=== PATIENT | female | born 1940 | race Caucasian/White ===

== ENCOUNTER → 2021-11-05 | Outpatient (CLI) | payer MEDICARE, OTHER ==
[2021-11-05 14:58] LABS: PROTHROMBIN TIME 18.2 SECONDS (9.0-12.0)
== END ==
LOC: LAB 14:33
PROVIDERS: Family Medicine
DX: Z79.01 Long term (current) use of anticoagulants (principal)

== ENCOUNTER → 2021-11-08 | Outpatient (CLI) | payer MEDICARE, OTHER ==
[2021-11-08 09:05] LABS: PROTHROMBIN TIME 19.9 SECONDS (9.0-12.0)
== END ==
LOC: LAB 08:32
PROVIDERS: Family Medicine
DX: Z12.31 Encounter for screening mammogram for malignant neoplasm of breast (principal); E78.5 Hyperlipidemia, unspecified; E05.90 Thyrotoxicosis, unspecified without thyrotoxic crisis or storm; I48.91 Unspecified atrial fibrillation; E66.9 Obesity, unspecified; Z79.01 Long term (current) use of anticoagulants

== ENCOUNTER → 2021-11-15 | Outpatient (CLI) | payer MEDICARE, OTHER ==
[2021-11-15 09:06] LABS: PROTHROMBIN TIME 22.2 SECONDS (9.0-12.0)
== END ==
LOC: LAB 08:17
PROVIDERS: Family Medicine
DX: Z12.31 Encounter for screening mammogram for malignant neoplasm of breast (principal); E78.5 Hyperlipidemia, unspecified; E05.90 Thyrotoxicosis, unspecified without thyrotoxic crisis or storm; E66.9 Obesity, unspecified; I48.91 Unspecified atrial fibrillation; Z79.01 Long term (current) use of anticoagulants

== ENCOUNTER → 2021-11-29 | Outpatient (CLI) | payer MEDICARE, OTHER ==
[2021-11-29 09:05] LABS: PROTHROMBIN TIME 33.9 SECONDS (9.0-12.0)
== END ==
LOC: LAB 08:19
PROVIDERS: Family Medicine
DX: Z12.31 Encounter for screening mammogram for malignant neoplasm of breast (principal); E78.5 Hyperlipidemia, unspecified; E05.90 Thyrotoxicosis, unspecified without thyrotoxic crisis or storm; E66.9 Obesity, unspecified; I48.91 Unspecified atrial fibrillation; Z79.01 Long term (current) use of anticoagulants

== ENCOUNTER → 2021-12-03 | Outpatient (CLI) | payer MEDICARE, OTHER ==
[2021-12-03 08:52] LABS: PROTHROMBIN TIME 35.7 SECONDS (9.0-12.0)
== END ==
LOC: LAB 08:06
PROVIDERS: Family Medicine
DX: Z12.31 Encounter for screening mammogram for malignant neoplasm of breast (principal); E78.5 Hyperlipidemia, unspecified; E05.90 Thyrotoxicosis, unspecified without thyrotoxic crisis or storm; E66.9 Obesity, unspecified; I48.91 Unspecified atrial fibrillation; Z79.01 Long term (current) use of anticoagulants

== ENCOUNTER → 2021-12-05 | Outpatient (CLI) | payer MEDICARE, OTHER ==
[2021-12-05 09:35] LABS: PROTHROMBIN TIME 27.5 SECONDS (9.0-12.0)
== END ==
LOC: LAB 08:35
PROVIDERS: Family Medicine
DX: Z12.39 Encounter for other screening for malignant neoplasm of breast (principal); E78.5 Hyperlipidemia, unspecified; E05.90 Thyrotoxicosis, unspecified without thyrotoxic crisis or storm; E66.9 Obesity, unspecified; I48.91 Unspecified atrial fibrillation; Z79.01 Long term (current) use of anticoagulants

== ENCOUNTER → 2021-12-13 | Outpatient (CLI) | payer MEDICARE, OTHER ==
[2021-12-13 08:59] LABS: PROTHROMBIN TIME 20.1 SECONDS (9.0-12.0)
== END ==
LOC: LAB 07:54
PROVIDERS: Family Medicine
DX: Z12.31 Encounter for screening mammogram for malignant neoplasm of breast (principal); E78.5 Hyperlipidemia, unspecified; E05.90 Thyrotoxicosis, unspecified without thyrotoxic crisis or storm; E66.9 Obesity, unspecified; I48.91 Unspecified atrial fibrillation; Z79.01 Long term (current) use of anticoagulants

== ENCOUNTER → 2021-12-20 | Outpatient (CLI) | payer MEDICARE, OTHER ==
[2021-12-20 10:28] LABS: PROTHROMBIN TIME 26.6 SECONDS (9.0-12.0)
== END ==
LOC: LAB 08:06
PROVIDERS: Family Medicine
DX: Z12.39 Encounter for other screening for malignant neoplasm of breast (principal); E78.5 Hyperlipidemia, unspecified; Z79.01 Long term (current) use of anticoagulants; E05.90 Thyrotoxicosis, unspecified without thyrotoxic crisis or storm; E66.9 Obesity, unspecified; I48.91 Unspecified atrial fibrillation

== ENCOUNTER → 2022-01-06 | Outpatient (CLI) | payer MEDICARE, OTHER ==
[2022-01-06 10:24] LABS: PROTHROMBIN TIME 37.2 SECONDS (9.0-12.0)
== END ==
LOC: LAB 09:05
PROVIDERS: Family Medicine
DX: Z12.39 Encounter for other screening for malignant neoplasm of breast (principal); I48.91 Unspecified atrial fibrillation; E05.90 Thyrotoxicosis, unspecified without thyrotoxic crisis or storm; E78.5 Hyperlipidemia, unspecified; E66.9 Obesity, unspecified

== ENCOUNTER → 2022-01-08 | Outpatient (CLI) | payer MEDICARE, OTHER ==
[2022-01-08 09:32] LABS: PROTHROMBIN TIME 27.3 SECONDS (9.0-12.0)
== END ==
LOC: LAB 08:12
PROVIDERS: Family Medicine
DX: Z12.31 Encounter for screening mammogram for malignant neoplasm of breast (principal); I48.91 Unspecified atrial fibrillation; E05.90 Thyrotoxicosis, unspecified without thyrotoxic crisis or storm; E78.5 Hyperlipidemia, unspecified; E66.9 Obesity, unspecified; Z79.01 Long term (current) use of anticoagulants

== ENCOUNTER → 2022-01-13 | Outpatient (CLI) | payer MEDICARE, OTHER ==
[2022-01-13 08:56] LABS: PROTHROMBIN TIME 28.2 SECONDS (9.0-12.0)
== END ==
LOC: LAB 08:26
PROVIDERS: Family Medicine
DX: Z12.31 Encounter for screening mammogram for malignant neoplasm of breast (principal); I48.91 Unspecified atrial fibrillation; E78.5 Hyperlipidemia, unspecified; E05.90 Thyrotoxicosis, unspecified without thyrotoxic crisis or storm; E66.9 Obesity, unspecified; Z79.01 Long term (current) use of anticoagulants

== ENCOUNTER → 2022-01-27 | Outpatient (CLI) | payer MEDICARE, OTHER ==
[2022-01-27 12:10] LABS: PROTHROMBIN TIME 29.7 SECONDS (9.0-12.0)
== END ==
LOC: LAB 10:05
PROVIDERS: Family Medicine
DX: Z12.39 Encounter for other screening for malignant neoplasm of breast (principal); I48.91 Unspecified atrial fibrillation; E05.90 Thyrotoxicosis, unspecified without thyrotoxic crisis or storm; E78.5 Hyperlipidemia, unspecified; Z79.01 Long term (current) use of anticoagulants; E66.9 Obesity, unspecified

== ENCOUNTER → 2022-02-11 | Outpatient (CLI) | payer MEDICARE, OTHER ==
[2022-02-11 10:54] LABS: PROTHROMBIN TIME 43.9 SECONDS (9.0-12.0)
== END ==
LOC: LAB 10:18
PROVIDERS: Family Medicine
DX: I48.91 Unspecified atrial fibrillation (principal); Z12.39 Encounter for other screening for malignant neoplasm of breast; E05.90 Thyrotoxicosis, unspecified without thyrotoxic crisis or storm; Z79.01 Long term (current) use of anticoagulants; E66.9 Obesity, unspecified

== ENCOUNTER → 2022-02-14 | Outpatient (CLI) | payer MEDICARE, OTHER ==
[2022-02-14 10:09] LABS: PROTHROMBIN TIME 20.6 SECONDS (9.0-12.0)
== END ==
LOC: LAB 09:26
PROVIDERS: Family Medicine
DX: Z12.39 Encounter for other screening for malignant neoplasm of breast (principal); I48.91 Unspecified atrial fibrillation; E05.90 Thyrotoxicosis, unspecified without thyrotoxic crisis or storm; E66.9 Obesity, unspecified; E78.5 Hyperlipidemia, unspecified; Z79.01 Long term (current) use of anticoagulants

== ENCOUNTER → 2022-02-28 | Outpatient (CLI) | payer MEDICARE, OTHER ==
[2022-02-28 09:11] LABS: PROTHROMBIN TIME 21.1 SECONDS (9.0-12.0)
== END ==
LOC: LAB 08:32
PROVIDERS: Family Medicine
DX: Z12.31 Encounter for screening mammogram for malignant neoplasm of breast (principal); E78.5 Hyperlipidemia, unspecified; E05.90 Thyrotoxicosis, unspecified without thyrotoxic crisis or storm; I48.91 Unspecified atrial fibrillation; E66.9 Obesity, unspecified; Z79.01 Long term (current) use of anticoagulants

== ENCOUNTER → 2022-04-02 | Outpatient (CLI) | payer MEDICARE, OTHER ==
[2022-04-02 10:50] LABS: PROTHROMBIN TIME 21.1 SECONDS (9.0-12.0)
== END ==
LOC: LAB 10:07
PROVIDERS: Family Medicine
DX: Z12.31 Encounter for screening mammogram for malignant neoplasm of breast (principal); E78.5 Hyperlipidemia, unspecified; E05.90 Thyrotoxicosis, unspecified without thyrotoxic crisis or storm; E66.9 Obesity, unspecified; I48.91 Unspecified atrial fibrillation; Z79.01 Long term (current) use of anticoagulants

== ENCOUNTER → 2022-04-11 | Outpatient (CLI) | payer MEDICARE, OTHER ==
[2022-04-11 09:50] LABS: PROTHROMBIN TIME 23.8 SECONDS (9.0-12.0)
== END ==
LOC: LAB 09:21
PROVIDERS: Family Medicine
DX: Z12.31 Encounter for screening mammogram for malignant neoplasm of breast (principal); E78.5 Hyperlipidemia, unspecified; E05.90 Thyrotoxicosis, unspecified without thyrotoxic crisis or storm; I48.91 Unspecified atrial fibrillation; E66.9 Obesity, unspecified; Z79.01 Long term (current) use of anticoagulants

== ENCOUNTER → 2022-04-24 | Outpatient (CLI) | payer MEDICARE, OTHER ==
[2022-04-24 08:13] LABS: BASO # 0.03 K/mm3 (0.02-0.10); EOS # 0.36 K/mm3 (0.04-0.40); EOS % 6.2 % (1.0-5.0); HEMATOCRIT 44.5 % (37.0-47.0); HEMOGLOBIN 14.6 g/dL (12.5-16.0); MEAN CELL VOLUME 97 fl (78-100); MEAN CORPUSCULAR HEMOGLOBIN 32 pg (27-31); MEAN CORPUSCULAR HGB CONC 33 g/dL (33-37); MEAN PLATELET VOLUME 11.9 fl (7.4-10.4); MONO # 0.57 K/mm3 (0.20-0.80); NEU # 3.71 K/mm3 (1.40-6.50); PLATELET COUNT 141 K/mm3 (130-400); RED BLOOD COUNT 4.61 M/mm3 (4.10-5.30); RED CELL DISTRIBUTION WIDTH 12.5 % (11.5-14.5); WHITE BLOOD COUNT 5.8 K/mm3 (4.8-10.8)
[2022-04-24 08:25] LABS: ALBUMIN 3.9 g/dL (3.4-4.8)
[2022-04-24 08:26] LABS: CALCIUM 10.1 mg/dL (8.3-10.5)
[2022-04-24 08:27] LABS: TOTAL PROTEIN 7.3 g/dL (6.2-8.1)
[2022-04-24 08:29] LABS: TOTAL BILIRUBIN 1.1 mg/dL (0.2-1.2)
[2022-04-24 08:58] LABS: PROTHROMBIN TIME 20.4 SECONDS (9.0-12.0)
== END ==
LOC: LAB 07:54
PROVIDERS: Family Medicine
DX: Z00.00 Encounter for general adult medical examination without abnormal findings (principal); E78.5 Hyperlipidemia, unspecified; E05.90 Thyrotoxicosis, unspecified without thyrotoxic crisis or storm

== ENCOUNTER → 2022-05-14 | Outpatient (CLI) | payer MEDICARE, OTHER ==
[2022-05-14 15:26] LABS: PROTHROMBIN TIME 34.9 SECONDS (9.0-12.0)
== END ==
LOC: LAB 15:00
PROVIDERS: Family Medicine
DX: Z12.39 Encounter for other screening for malignant neoplasm of breast (principal); I48.91 Unspecified atrial fibrillation; E78.5 Hyperlipidemia, unspecified; E66.9 Obesity, unspecified; Z79.01 Long term (current) use of anticoagulants

== ENCOUNTER 2022-07-15 19:43 | Emergency (ER) | payer MEDICARE, OTHER ==
[~2022-07-15] VITALS: Ht 165.1 cm; Wt 101.8 kg
[2022-07-15 21:41] LABS: BASO # 0.03 K/mm3 (0.02-0.10); EOS # 0.19 K/mm3 (0.04-0.40); EOS % 2.3 % (1.0-5.0); HEMATOCRIT 41.7 % (37.0-47.0); HEMOGLOBIN 13.3 g/dL (12.5-16.0); LYMPH# 1.31 K/mm3 (1.50-4.00); MEAN CELL VOLUME 98 fl (78-100); MEAN CORPUSCULAR HEMOGLOBIN 31 pg (27-31); MEAN CORPUSCULAR HGB CONC 32 g/dL (33-37); MEAN PLATELET VOLUME 11.8 fl (7.4-10.4); MONO # 0.99 K/mm3 (0.20-0.80); NEU # 5.57 K/mm3 (1.40-6.50); PLATELET COUNT 182 K/mm3 (130-400); RED BLOOD COUNT 4.27 M/mm3 (4.10-5.30); WHITE BLOOD COUNT 8.1 K/mm3 (4.8-10.8)
[2022-07-15 21:51] LABS: ALBUMIN 3.8 g/dL (3.4-4.8); POTASSIUM 4.5 mmol/L (3.5-5.1)
[2022-07-15 21:52] LABS: CALCIUM 10.2 mg/dL (8.3-10.5)
[2022-07-15 21:54] LABS: TOTAL PROTEIN 7.1 g/dL (6.2-8.1)
[2022-07-15 21:55] LABS: TOTAL BILIRUBIN 0.9 mg/dL (0.2-1.2)
[2022-07-15 22:00] VITALS: BP 166/78
[2022-07-15 22:17] LABS: PROTHROMBIN TIME 40.3 SECONDS (9.0-12.0)
[2022-07-15] MEDS ORDERED: WARFARIN SODIUM4 MG PO (23:38)
[2022-07-15] MEDS ORDERED: ATENOLOL25 MG PO (23:43)
[2022-07-15] MEDS ORDERED: TAPAZOLE 5MG TAB5 MG PO (23:45)
== END 2022-07-15 22:00 | disposition other institution (70) ==
LOC: ED 19:43
PROVIDERS: Nurse Practitioner
DX: S70.12XA Contusion of left thigh, initial encounter (principal); M25.561 Pain in right knee; M25.562 Pain in left knee; M25.571 Pain in right ankle and joints of right foot; I48.91 Unspecified atrial fibrillation; Z79.01 Long term (current) use of anticoagulants; Z28.310 Unvaccinated for COVID-19; W19.XXXA Unspecified fall, initial encounter; Y92.009 Unspecified place in unspecified non-institutional (private) residence as the place of occurrence of the external cause

== ENCOUNTER 2022-07-15 22:30 | Inpatient (IN) | payer MEDICARE, OTHER ==
[~2022-07-15] VITALS: Ht 165.1 cm; Wt 102.2 kg
[2022-07-15 22:00] VITALS: BP 166/78
[2022-07-15] MEDS ORDERED: WARFARIN SODIUM4 MG PO (23:38)
[2022-07-15] MEDS ORDERED: ATENOLOL25 MG PO (23:43)
[2022-07-15] MEDS ORDERED: TAPAZOLE 5MG TAB5 MG PO (23:45)
--- NOTE | 2022-07-16 00:30 | NUR ---
Hydrocodone 5 MG given for H/A rates 5/10 with no relief from Tylenol taken earlier today.
--- NOTE | 2022-07-16 06:13 | NUR ---
PT HAD FALLEN TO THE FLOOR WHILE CLEANING UP FLOUR SPILLED ON THE KITCHEN FLOOR. OCCURRED 1 WEEK AGO. THE FALL CAUSED HER TO DO THE SPLITS. EVENTUALLY SHE MADE IT UP AND CALLED FOR HELP. PT STAYED AT HOME HOPING TO GET BETTER. IMPROVED FOR A COUPLE OF DAYS BUT 07/15/22 WAS UNABLE TO MOVE RIGHT LEG/FOOT DUE TO EXTREME PAIN AND SWELLING TO THE RIGHT KNEE AREA. SHE ALSO NOTED SOME BRUISING TO THE LEFT THIGH FROM THE GROIN AREA DOWN TO THE KNEE. PT HAS AN INCREASED INR 3.9 AND PT 40.3 SEC. NO FX'S NOTED. PT WAS ADMITTED FROM THE ER.
[2022-07-16 06:16] LABS: URINE APPEARANCE CLEAR; URINE BILIRUBIN NEGATIVE (NEGATIVE); URINE BLOOD TRACE (NEGATIVE); URINE COLOR YELLOW; URINE GLUCOSE NEGATIVE (NEGATIVE); URINE KETONE NEGATIVE (NEGATIVE); URINE LEUKOCYTE ESTERASE NEGATIVE (NEGATIVE); URINE NITRATE NEGATIVE (NEGATIVE); URINE PROTEIN(semi-quant) 1+ (NEGATIVE); URINE UROBILINOGEN NORMAL (NORMAL)
[2022-07-16 06:17] LABS: URINE MUCUS PRESENT (NOT PRESENT)
[2022-07-16 06:18] VITALS: BP 136/77
--- NOTE | 2022-07-16 07:49 | NUR ---
Report to Elsa RENE
--- NOTE | 2022-07-16 07:52 | NUR ---
INR results reported to Dr Pierosn. Coumadin remains on hold
--- NOTE | 2022-07-16 07:55 | NUR ---
Pt in recliner next to bed. c/o tightness in right knee/leg, visible swelling noted. Pt up to bathroom with walker and assist of 1 staff. Pt A&O. No complaints or needs voiced at this time. call light in reach
[2022-07-16 10:40] VITALS: BP 118/75
[2022-07-16 13:09] VITALS: BP 118/76
--- NOTE | 2022-07-16 13:36 | NUR ---
REPORT RECEIVED FROM Marcelle ADAMS RN. PT AMBULATED IN [place] WITH PHYSICAL THERAPY USING WALKER. ASSISTED BACK TO BED. RADIOLOGY NOW IN TO DO VENOUS DOPPPLER ON LEFT LEG.
--- NOTE | 2022-07-16 16:10 | NUR ---
VENOUS DOPPLER SHOWED NO CLOTS. ONLY A POPLITEAL CYST RT KNEE. DR JAIN AWARE. PT DECLINES [facility]. HAS BEEN UP WALKING IN [place] AND SITTING IN CHAIR TODAY. WILL APPLY SCD'S TONIGHT WHEN IN BED. DR JAIN AWARE.
--- NOTE | 2022-07-16 17:02 | NUR ---
Report given to Lisa Keita LPN
--- NOTE | 2022-07-16 17:09 | NUR ---
Report received from Leeann Villasenor RN. Patient sitting up in recliner talking on telephone. No signs of pain or distress.
--- NOTE | 2022-07-16 17:29 | NUR ---
Sitting up in recliner, assessent completed. Denies pain. Discussed use of SCD's and patient willing to try tonight and see how she likes. Reviewed POC and medications. Denies questions, wants or needs at this time. Call light in reach.
[2022-07-16 18:00] VITALS: BP 121/61
[2022-07-16 21:34] VITALS: BP 127/65
[2022-07-17 01:47] VITALS: BP 146/78
--- NOTE | 2022-07-17 06:03 | NUR ---
Rested well per report. Up to BR with 1:1 assist PRN. Denies pain this AM. Scheduled Protonix taken.
[2022-07-17 06:05] VITALS: BP 137/71
[2022-07-17 07:18] LABS: BASO # 0.03 K/mm3 (0.02-0.10); EOS # 0.21 K/mm3 (0.04-0.40); EOS % 3.4 % (1.0-5.0); HEMATOCRIT 38.3 % (37.0-47.0); HEMOGLOBIN 12.4 g/dL (12.5-16.0); LYMPH# 1.05 K/mm3 (1.50-4.00); MEAN CELL VOLUME 98 fl (78-100); MEAN CORPUSCULAR HEMOGLOBIN 32 pg (27-31); MEAN CORPUSCULAR HGB CONC 32 g/dL (33-37); MEAN PLATELET VOLUME 11.3 fl (7.4-10.4); MONO # 0.76 K/mm3 (0.20-0.80); NEU # 4.02 K/mm3 (1.40-6.50); PLATELET COUNT 168 K/mm3 (130-400); RED BLOOD COUNT 3.91 M/mm3 (4.10-5.30); WHITE BLOOD COUNT 6.1 K/mm3 (4.8-10.8)
[2022-07-17 07:19] LABS: ALBUMIN 3.5 g/dL (3.4-4.8)
--- NOTE | 2022-07-17 07:20 | NUR ---
Report to Suzette RENE
[2022-07-17 07:21] LABS: CALCIUM 9.6 mg/dL (8.3-10.5)
[2022-07-17 07:22] LABS: TOTAL PROTEIN 6.4 g/dL (6.2-8.1)
[2022-07-17 07:24] LABS: TOTAL BILIRUBIN 1.3 mg/dL (0.2-1.2)
[2022-07-17 07:58] LABS: PROTHROMBIN TIME 28.6 SECONDS (9.0-12.0)
[2022-07-17 09:57] VITALS: BP 107/60
[2022-07-17 14:15] VITALS: BP 130/55
[2022-07-17 18:00] VITALS: BP 125/81
--- NOTE | 2022-07-17 19:45 | NUR ---
Report recevied from Suzette RENE. Patient sitting up in recliner with knee immobilizer in place to RLE. AUTO PARTS DELIVERY DRIVER in getting cryo cuff ready to apply cold theraphy. A/O x4. Denies pain. Education provided on NWB status. Assessment completed. AUTO [employer]S DELIVERY DRIVER's in to assist to BSC to void.
--- NOTE | 2022-07-17 20:15 | NUR ---
HS medications taken. Refused colace. Reports she would like a "mild" sleep aid tonight. Provider notified. Refused SCD to LLE. Education provided on use of SCD's for bloot clot prevention, verbalizes understanding. Rests in bed with immobilizer and cryocuff in place.
[2022-07-17 21:33] VITALS: BP 114/66
[2022-07-18 02:30] VITALS: BP 123/63
--- NOTE | 2022-07-18 03:44 | NUR ---
Requested to use the bed song, States to [employer] SL[employer] SUPERVISOR that she "wanted to take the easy way out". Voids in bed song at this time.
[2022-07-18 05:39] VITALS: BP 126/77
--- NOTE | 2022-07-18 07:15 | NUR ---
Report to [facility] EXECUTIVE MEETING MANAGER.
--- NOTE | 2022-07-18 07:30 | NUR ---
REPORT RECIEVED FROM BRANDY SMITH. PATIENT UP TO CHAIR, IMMOBILIZER TO RIGHT LEG IN PLACE, ICE APPLIED, LEGS ELEVATED. PATIENT DENIES PAIN OR DISCOMFORT AT THIS TIME. CHAIR ALARM ON, CALL LIGHT WITHIN REACH.
[2022-07-18 09:17] VITALS: BP 101/52
[2022-07-18 14:20] VITALS: BP 136/71
[2022-07-18 16:46] VITALS: BP 155/72
--- NOTE | 2022-07-18 19:00 | NUR ---
REPORT GIVEN TO EDGARD RAI.
--- NOTE | 2022-07-18 21:40 | NUR ---
Patient resting in bed, easily aroused. Takes pills whole with water. Denies pain at this time. No needs at this time. Call light within reach, bed alarm on.
[2022-07-18 22:13] VITALS: BP 143/83
--- NOTE | 2022-07-18 23:07 | NUR ---
Patient having discomfort to RLE behind knee. Immoblizer readjusted without relief. PRN tylenol given per request. Up to bedside commode with 2-assist. Some relief to RLE with change in position.
[2022-07-19 01:42] VITALS: BP 167/69
[2022-07-19 06:01] VITALS: BP 136/74
[2022-07-19 10:56] VITALS: BP 153/77
[2022-07-19 14:49] VITALS: BP 155/75
[2022-07-19 16:11] LABS: PROTHROMBIN TIME 23.9 SECONDS (9.0-12.0)
[2022-07-19 18:09] VITALS: BP 158/63
--- NOTE | 2022-07-19 20:38 | NUR ---
Report received from Yisel RENE. Patient sitting up in recliner, dozing on and off. Oriented x4. Denies pain or need for analgesic at this time. "It's not bad like last night. Knee immobizer in place to RLE and bilateral legs elevated in recliner. Assessment completed. Denies wants or needs at this time.
[2022-07-19 22:45] VITALS: BP 134/63
[2022-07-20 02:21] VITALS: BP 134/74
--- NOTE | 2022-07-20 05:53 | NUR ---
Rested well. Up to BSC to void PRN with 2:[address] Denies pain to RLE. Utilzing cryocuff.
[2022-07-20 06:21] VITALS: BP 149/68
--- NOTE | 2022-07-20 07:00 | NUR ---
RESUMED CARE FROM RBANDY SMITH.
--- NOTE | 2022-07-20 07:14 | NUR ---
Report to Elyse RENE.
--- NOTE | 2022-07-20 08:45 | NUR ---
THIS NURSE ASSISTED PATIENT WITH DIEGO RAZA TO PIVOT TRANFERS FROM BEDSIDE COMMODE TO RECLINER. PATIENT VOIDED AT THIS TIME. RIGHT KNEE IMMOBILIZER IN PLACE, PT REMAINS NWB TO RLE. PT REPORTS DISCOMFORT WITH IMMOBILIZER, THIS NURSE READJUSTED WITH RELIEF. ASSESSMENT COMPLETED. PT REPORT DIFFICULTY WITH BOWELS, HYPOACTIVE BOWEL SOUNDS NOTED ON ASSESSMENT. PT REQUESTS MIRALAX WITH LUNCH. NO OTHER COMPLAINTS AT THIS TIME. NEEDS MET. FALL PRECAUTIONS IN PLACE.
[2022-07-20 10:15] VITALS: BP 115/62
[2022-07-20 14:04] VITALS: BP 121/70
--- NOTE | 2022-07-20 17:13 | NUR ---
PATIENT HAD DENIED PAIN TO RLE UNTIL 1529 SHE REQUESTED TYLENOL AND REPOSITIONING OF KNEE IMMOBILIZER IT WAS CAUSING SOME DISCOMFORT WHERE THE VELCRO WAS LOCATED. TYLENOL AND REPOSITIONED RELIEVED DISCOMFORT. PATIENT HAD A VISIT FROM [employer] AND SONS THAT SEEMED TO LIFT HER SPIRITS REGARDING NWB STATUS. PT DID MAKE COMMENT "I AM THE WEAKEST I'VE EVER FELT SINCE NOT BEING ALLOWED TO WALK" EMOTIONAL SUPPORT PROVIDED. PATIENT DID HAVE A LARGE BOWEL MOVEMENT THIS AFTERNOON WITHOUT THE USE OF MIRALAX. PIVOT ASSIST WITH X1-X2 ASSIST WITH GAITBELT AND WALKER GOING WELL. NO OTHER COMPLAINTS AT THIS TIME. FALL PRECAUTIONS IN PLACE.
[2022-07-20 17:40] VITALS: BP 113/63
--- NOTE | 2022-07-20 18:46 | NUR ---
REPORT TO BRANDY SMITH.
--- NOTE | 2022-07-20 19:25 | NUR ---
Report received from Elyse RENE. Sitting up in recliner watching TV. Bilateral LE elevated with brace on to RLE. A/O x4. Denies pain. No SOA or cough. CMS WN to RLE. Brace requires adjustment PRN for comfort and correctness. Assessment completed. Denies wants or needs at this time.
[2022-07-20 22:00] VITALS: BP 120/49
[2022-07-21 02:25] VITALS: BP 134/74
[2022-07-21 06:04] VITALS: BP 144/78
--- NOTE | 2022-07-21 06:08 | NUR ---
Up to BR several times in the night to void. Transfered well from bed to W/C and W/C to toilet and back with 1:1 assist and walker, maintaining NWB status to RLE. Immobilizer in place and adjusted several times for correct alignment and comfort. Utilized cryo cuff PRN.
--- NOTE | 2022-07-21 07:00 | NUR ---
RESUMED CARE FROM BRANDY SMITH.
--- NOTE | 2022-07-21 07:08 | NUR ---
Report to Elyse RENE.
[2022-07-21 08:58] LABS: PROTHROMBIN TIME 26.6 SECONDS (9.0-12.0)
[2022-07-21 10:14] VITALS: BP 120/62
[2022-07-21 10:23] LABS: BASO # 0.02 K/mm3 (0.02-0.10); EOS # 0.16 K/mm3 (0.04-0.40); EOS % 2.4 % (1.0-5.0); HEMATOCRIT 41.4 % (37.0-47.0); HEMOGLOBIN 13.2 g/dL (12.5-16.0); LYMPH# 0.87 K/mm3 (1.50-4.00); MEAN CELL VOLUME 99 fl (78-100); MEAN CORPUSCULAR HEMOGLOBIN 32 pg (27-31); MEAN CORPUSCULAR HGB CONC 32 g/dL (33-37); MEAN PLATELET VOLUME 11.9 fl (7.4-10.4); MONO # 0.67 K/mm3 (0.20-0.80); NEU # 4.87 K/mm3 (1.40-6.50); PLATELET COUNT 201 K/mm3 (130-400); RED BLOOD COUNT 4.19 M/mm3 (4.10-5.30); RED CELL DISTRIBUTION WIDTH 13.1 % (11.5-14.5); WHITE BLOOD COUNT 6.6 K/mm3 (4.8-10.8)
[2022-07-21 10:30] LABS: ALBUMIN 3.7 g/dL (3.4-4.8)
[2022-07-21 10:31] LABS: CALCIUM 9.9 mg/dL (8.3-10.5)
[2022-07-21 10:32] LABS: TOTAL PROTEIN 6.9 g/dL (6.2-8.1)
[2022-07-21 10:34] LABS: TOTAL BILIRUBIN 0.8 mg/dL (0.2-1.2)
--- NOTE | 2022-07-21 13:45 | NUR ---
PATIENT SWITCH FROM ACUTE TO SWINGBED
[2022-07-21 14:46] VITALS: BP 144/68
[2022-07-21 17:03] VITALS: BP 132/86
== END 2022-07-21 13:45 | disposition swing bed (61) | DRG 563 ==
LOC: MED/SURG 22:30
PROVIDERS: Family Medicine; Nurse Practitioner; ADMIT Nurse Practitioner
DX: S82.141A Displaced bicondylar fracture of right tibia, initial encounter for closed fracture (principal); S83.241A Other tear of medial meniscus, current injury, right knee, initial encounter; S70.12XA Contusion of left thigh, initial encounter; I48.91 Unspecified atrial fibrillation; E03.9 Hypothyroidism, unspecified; R60.9 Edema, unspecified; E78.5 Hyperlipidemia, unspecified; W18.30XA Fall on same level, unspecified, initial encounter; Y92.009 Unspecified place in unspecified non-institutional (private) residence as the place of occurrence of the external cause; E66.9 Obesity, unspecified; Z68.37 Body mass index [BMI] 37.0-37.9, adult; Z79.01 Long term (current) use of anticoagulants

== ENCOUNTER → 2022-09-02 | Outpatient (CLI) | payer MEDICARE, OTHER ==
[~2022-09-02] MED LIST: ATENOLOL25 MG PO; BETAMETHASONE D0.05% TOP; CIPRODEX 0.3%-7.5 ML OT; TAPAZOLE 5MG TAB5 MG PO; WARFARIN SODIUM4 MG PO; WARFARIN SODIUM5 MG PO
[2022-09-02 11:35] LABS: PROTHROMBIN TIME 30.6 SECONDS (9.0-12.0)
== END ==
LOC: LAB 10:41
PROVIDERS: Family Medicine
DX: Z12.31 Encounter for screening mammogram for malignant neoplasm of breast (principal); M17.11 Unilateral primary osteoarthritis, right knee; E78.5 Hyperlipidemia, unspecified; Z79.01 Long term (current) use of anticoagulants; E05.90 Thyrotoxicosis, unspecified without thyrotoxic crisis or storm; E66.9 Obesity, unspecified; I48.91 Unspecified atrial fibrillation; S82.101A Unspecified fracture of upper end of right tibia, initial encounter for closed fracture

== ENCOUNTER → 2022-10-02 | Outpatient (CLI) | payer MEDICARE, OTHER ==
[2022-10-02 11:44] LABS: PROTHROMBIN TIME 34.1 SECONDS (9.0-12.0)
== END ==
LOC: LAB 10:44
PROVIDERS: Family Medicine
DX: S82.144D Nondisplaced bicondylar fracture of right tibia, subsequent encounter for closed fracture with routine healing (principal); S83.241D Other tear of medial meniscus, current injury, right knee, subsequent encounter; X58.XXXD Exposure to other specified factors, subsequent encounter; Z91.81 History of falling

== ENCOUNTER → 2023-04-14 | Outpatient (CLI) | payer MEDICARE, OTHER ==
[2023-04-14 13:25] LABS: PROTHROMBIN TIME 22.3 SECONDS (9.0-12.0)
== END ==
LOC: LAB 12:55
PROVIDERS: Family Medicine
DX: Z79.01 Long term (current) use of anticoagulants (principal)

== ENCOUNTER → 2023-05-12 | Outpatient (CLI) | payer MEDICARE, OTHER ==
[2023-05-12 11:22] LABS: PROTHROMBIN TIME 21.8 SECONDS (9.0-12.0)
== END ==
LOC: LAB 10:42
PROVIDERS: Family Medicine
DX: E55.9 Vitamin D deficiency, unspecified (principal); Z79.01 Long term (current) use of anticoagulants

== ENCOUNTER → 2023-06-17 | Outpatient (CLI) | payer MEDICARE, OTHER ==
[2023-06-17 13:44] LABS: PROTHROMBIN TIME 21.6 SECONDS (9.0-12.0)
== END ==
LOC: LAB 13:11
PROVIDERS: Family Medicine
DX: Z79.01 Long term (current) use of anticoagulants (principal)

== ENCOUNTER → 2023-07-21 | Outpatient (CLI) | payer MEDICARE, OTHER ==
[2023-07-21 14:01] LABS: PROTHROMBIN TIME 22.3 SECONDS (9.0-12.0)
== END ==
LOC: LAB 13:27
PROVIDERS: Family Medicine
DX: Z79.01 Long term (current) use of anticoagulants (principal)

== ENCOUNTER → 2023-08-28 | Outpatient (CLI) | payer MEDICARE, OTHER | LOC: LAB 10:46 | PROVIDERS: Family Medicine | DX: Z79.01 Long term (current) use of anticoagulants (principal) ==

== ENCOUNTER → 2023-10-06 | Outpatient (CLI) | payer MEDICARE, OTHER ==
[2023-10-06 10:49] LABS: PROTHROMBIN TIME 22.5 SECONDS (9.0-12.0)
== END ==
LOC: LAB 10:16
PROVIDERS: Nurse Practitioner
DX: Z79.01 Long term (current) use of anticoagulants (principal)

== ENCOUNTER → 2023-11-02 | Outpatient (CLI) | payer MEDICARE, OTHER ==
[2023-12-22 11:52] LABS: PROTHROMBIN TIME 18.3 SECONDS (9.0-12.0)
== END ==
LOC: LAB 12:00
PROVIDERS: Nurse Practitioner
DX: Z79.01 Long term (current) use of anticoagulants (principal)

== ENCOUNTER → 2023-11-10 | Outpatient (CLI) | payer MEDICARE, OTHER | LOC: LAB 12:00 | PROVIDERS: Nurse Practitioner | DX: Z79.01 Long term (current) use of anticoagulants (principal) ==

== ENCOUNTER → 2023-12-01 | Outpatient (CLI) | payer MEDICARE, OTHER ==
[2023-12-01 08:41] LABS: BASO # 0.03 K/mm3 (0.02-0.10); EOS # 0.19 K/mm3 (0.04-0.40); EOS % 2.8 % (1.0-5.0); HEMATOCRIT 46.9 % (37.0-47.0); HEMOGLOBIN 15.1 g/dL (12.5-16.0); LYMPH# 0.94 K/mm3 (1.50-4.00); MEAN CELL VOLUME 97 fl (78-100); MEAN CORPUSCULAR HEMOGLOBIN 31 pg (27-31); MEAN CORPUSCULAR HGB CONC 32 g/dL (33-37); MEAN PLATELET VOLUME 11.7 fl (7.4-10.4); NEU # 5.01 K/mm3 (1.40-6.50); PLATELET COUNT 158 K/mm3 (130-400); RED BLOOD COUNT 4.84 M/mm3 (4.10-5.30); RED CELL DISTRIBUTION WIDTH 12.3 % (11.5-14.5); WHITE BLOOD COUNT 6.8 K/mm3 (4.8-10.8)
[2023-12-01 08:49] LABS: ALBUMIN 3.8 g/dL (3.4-4.8)
[2023-12-01 08:53] LABS: TOTAL BILIRUBIN 0.8 mg/dL (0.2-1.2)
[2023-12-01 09:01] LABS: PROTHROMBIN TIME 16.1 SECONDS (9.0-12.0)
== END ==
LOC: LAB 08:10
PROVIDERS: Family Medicine
DX: Z13.9 Encounter for screening, unspecified (principal); E78.5 Hyperlipidemia, unspecified; E05.90 Thyrotoxicosis, unspecified without thyrotoxic crisis or storm; I10 Essential (primary) hypertension; E55.9 Vitamin D deficiency, unspecified; Z79.01 Long term (current) use of anticoagulants

== ENCOUNTER → 2023-12-07 | Outpatient (CLI) | payer MEDICARE, OTHER ==
[2023-12-07 08:53] LABS: PROTHROMBIN TIME 17.2 SECONDS (9.0-12.0)
== END ==
LOC: LAB 08:08
PROVIDERS: Nurse Practitioner
DX: Z79.01 Long term (current) use of anticoagulants (principal)

== ENCOUNTER → 2023-12-09 | Outpatient (CLI) | payer MEDICARE, OTHER ==
[~2023-12-09] MED LIST changes: +Iohexol 350 - 100 ML VIAL IV ONE
== END ==
LOC: RAD 08:25
DX: N28.1 Cyst of kidney, acquired (principal); K80.20 Calculus of gallbladder without cholecystitis without obstruction; R93.89 Abnormal findings on diagnostic imaging of other specified body structures
CPT/HCPCS: Q9967

== ENCOUNTER → 2023-12-24 | Outpatient (CLI) | payer MEDICARE, OTHER ==
[~2023-12-24] MED LIST changes: -Iohexol 350 - 100 ML VIAL IV ONE
== END ==
LOC: LAB 09:53
PROVIDERS: Nurse Practitioner
DX: Z79.01 Long term (current) use of anticoagulants (principal)

== ENCOUNTER → 2024-02-01 | Outpatient (CLI) | payer MEDICARE, OTHER | LOC: LAB 09:50 | PROVIDERS: Nurse Practitioner | DX: Z79.01 Long term (current) use of anticoagulants (principal) ==

== ENCOUNTER → 2024-02-18 | Outpatient (CLI) | payer MEDICARE, OTHER ==
[2024-02-18 09:00] LABS: PROTHROMBIN TIME 21.3 SECONDS (9.0-12.0)
== END ==
LOC: LAB 08:37
PROVIDERS: Family Medicine
DX: Z79.01 Long term (current) use of anticoagulants (principal)

== ENCOUNTER → 2024-03-21 | Outpatient (CLI) | payer MEDICARE, OTHER ==
[~2024-03-21] MED LIST changes: +WARFARIN SODIUM3 MG PO
[2024-03-21 17:08] LABS: PROTHROMBIN TIME 21.7 SECONDS (9.0-12.0)
== END ==
LOC: RAD 15:26
PROVIDERS: Internal Medicine Cardiovascular Disease
DX: I08.0 Rheumatic disorders of both mitral and aortic valves (principal); I50.20 Unspecified systolic (congestive) heart failure; Z79.01 Long term (current) use of anticoagulants

== ENCOUNTER 2024-03-25 12:30 | Emergency (ER) | payer MEDICARE, OTHER ==
[~2024-03-25] VITALS: Ht 160 cm; Wt 101.9 kg
[~2024-03-25 12:30] MED LIST changes: -WARFARIN SODIUM3 MG PO
[2024-03-25] MEDS ORDERED: WARFARIN SODIUM3 MG PO (12:53)
[2024-03-25] MEDS ORDERED: WARFARIN SODIUM4 MG PO (12:53)
[2024-03-25 13:20] LABS: BASO # 0.02 K/mm3 (0.02-0.10); EOS # 0.17 K/mm3 (0.04-0.40); EOS % 2.5 % (1.0-5.0); HEMATOCRIT 42.5 % (37.0-47.0); HEMOGLOBIN 13.9 g/dL (12.5-16.0); LYMPH# 0.87 K/mm3 (1.50-4.00); MEAN CELL VOLUME 96 fl (78-100); MEAN CORPUSCULAR HEMOGLOBIN 31 pg (27-31); MEAN CORPUSCULAR HGB CONC 33 g/dL (33-37); MEAN PLATELET VOLUME 11.6 fl (7.4-10.4); MONO # 0.73 K/mm3 (0.20-0.80); NEU # 5.07 K/mm3 (1.40-6.50); PLATELET COUNT 157 K/mm3 (130-400); RED BLOOD COUNT 4.42 M/mm3 (4.10-5.30); RED CELL DISTRIBUTION WIDTH 12.5 % (11.5-14.5); WHITE BLOOD COUNT 6.9 K/mm3 (4.8-10.8)
[2024-03-25 13:26] LABS: ALBUMIN 3.8 g/dL (3.4-4.8)
[2024-03-25 13:29] LABS: TOTAL PROTEIN 6.8 g/dL (6.2-8.1)
[2024-03-25 13:31] LABS: TOTAL BILIRUBIN 0.8 mg/dL (0.2-1.2)
[2024-03-25 13:35] LABS: URINE WBC 0 /hpf (0-3)
[2024-03-25 14:05] LABS: URINE APPEARANCE CLEAR (CLEAR); URINE COLOR YELLOW (YELLOW); URINE PROTEIN(semi-quant) NEGATIVE (NEGATIVE)
[2024-03-25 14:06] LABS: URINE BILIRUBIN NEGATIVE (NEGATIVE); URINE BLOOD 3+ (NEGATIVE); URINE GLUCOSE NEGATIVE (NEGATIVE); URINE KETONE NEGATIVE (NEGATIVE); URINE LEUKOCYTE ESTERASE NEGATIVE (NEGATIVE); URINE NITRATE NEGATIVE (NEGATIVE)
[2024-03-25 15:01] VITALS: BP 163/70
== END 2024-03-25 15:09 | disposition home or self-care (01) ==
LOC: ED 12:30
PROVIDERS: Family Medicine
DX: N93.9 Abnormal uterine and vaginal bleeding, unspecified (principal); I48.91 Unspecified atrial fibrillation; Z79.01 Long term (current) use of anticoagulants; Z79.899 Other long term (current) drug therapy

== ENCOUNTER → 2024-04-15 | Outpatient (CLI) | payer MEDICARE, OTHER ==
[~2024-04-15] MED LIST changes: +WARFARIN SODIUM3 MG PO
[2024-04-15 11:04] LABS: PROTHROMBIN TIME 24.8 SECONDS (9.0-12.0)
== END ==
LOC: LAB 10:29
PROVIDERS: Nurse Practitioner
DX: Z79.01 Long term (current) use of anticoagulants (principal)

== ENCOUNTER → 2024-04-29 | Outpatient (CLI) | payer MEDICARE, OTHER ==
[2024-04-29 09:56] LABS: PROTHROMBIN TIME 19.5 SECONDS (9.0-12.0)
== END ==
LOC: LAB 09:08
PROVIDERS: Nurse Practitioner
DX: Z79.01 Long term (current) use of anticoagulants (principal)

== ENCOUNTER → 2024-05-20 | Outpatient (CLI) | payer MEDICARE, OTHER ==
[2024-05-20 14:13] LABS: PROTHROMBIN TIME 17.2 SECONDS (9.0-12.0)
== END ==
LOC: LAB 13:32
PROVIDERS: Family Medicine
DX: Z79.01 Long term (current) use of anticoagulants (principal)

== ENCOUNTER → 2024-07-18 | Outpatient (CLI) | payer MEDICARE, OTHER | LOC: LAB 13:19 | PROVIDERS: Family Medicine | DX: Z79.01 Long term (current) use of anticoagulants (principal) ==

== ENCOUNTER → 2024-09-19 | Outpatient (CLI) | payer MEDICARE, OTHER ==
[2024-09-19 13:20] LABS: PROTHROMBIN TIME 22.4 SECONDS (9.0-12.0)
== END ==
LOC: LAB 12:47
PROVIDERS: Family Medicine
DX: Z51.81 Encounter for therapeutic drug level monitoring (principal); Z79.01 Long term (current) use of anticoagulants